=== PATIENT | female | born 1945 | race Caucasian/White ===

== ENCOUNTER 2017-08-29 18:29 | Inpatient (IN) | payer MEDICARE ==
[~2017-08-29] VITALS: Ht 160 cm; Wt 63.1 kg
[~2017-08-29 18:29] MED LIST: L-THYROXINE; PROTONIX40 M2 PO; Z.0.LISINOPRIL10 MG PO; Z.0.METOPROLOL SUCC2 PO; Z.0.SIMVASTATIN40 MG PO
--- NOTE | 2017-08-29 20:13 | Diagnostic Imaging Report ---
EXAMINATION: CHEST SINGLE (PORTABLE) INDICATION: Lower extremity swelling COMPARISON: None FINDINGS: TUBES and LINES: None. LUNGS: Lungs are well inflated. Right hilar prominence and right middle lung opacity suspicious for mass measuring 3.5 cm in diameter . There is associated right lower lobe atelectasis. PLEURA: Trace of right pleural effusion is seen HEART AND MEDIASTINUM: Cardiac size is mildly enlarged. There are atherosclerotic calcifications within the aorta. BONES AND SOFT TISSUES: No acute osseous lesion. Soft tissues are unremarkable. UPPER ABDOMEN: No free air under the diaphragm. IMPRESSION: Findings in the right hemithorax are suspicious for right hilar mass, atelectasis and obstructive pneumonitis. CT of the chest with IV contrast is recommended Signed by: Dr. Eldon Walsh M.D. on 08/29/2017 8:10 PM
[2017-08-29] MEDS ORDERED: SODIUM CHLORIDE 0.9% 1000ML 1,000 ML IV STA (21:28)
[2017-08-29] MEDS ORDERED: VANCOMYCIN 1GM/NS 250 ML 250 ML IV STA (22:07)
[2017-08-29] MEDS ORDERED: PIPER-TAZ 3.375 GM 50 ML IV STA (22:07)
[2017-08-29 23:05] LABS: BASOPHILS % 0.4 % (0.0-1.0); EOSINOPHILS # (AUTO) 0.2 (0.0-0.4); HEMATOCRIT 41.1 % (34.2-44.1); HEMOGLOBIN 12.9 g/dL (12.0-16.0); LYMPHOCYTES # (AUTO) 1.8 (1.0-3.2); LYMPHOCYTES % 24.5 % (18.0-39.1); MEAN CORPUSCULAR HEMOGLOBIN 27.5 pg (28-32); MEAN CORPUSCULAR HGB CONC 31.4 g/dL (31-35); MEAN CORPUSCULAR VOLUME 87.6 fL (81-99); MONOCYTES # (AUTO) 0.8 (0.2-0.8); MONOCYTES % 10.1 % (4.4-11.3); NEUTROPHILS # (AUTO) 4.6 (2.1-6.9); NEUTROPHILS % 61.7 % (38.7-80.0); PLATELET COUNT 238 x10e3/uL (140-360); RED BLOOD COUNT 4.69 x10e6/uL (3.6-5.1); RED CELL DISTRIBUTION WIDTH 13.4 % (11.7-14.4)
[2017-08-29 23:13] LABS: INR 0.95; PROTHROMBIN TIME 13.1 seconds (11.9-14.5)
[2017-08-29 23:14] LABS: PARTIAL THROMBOPLASTIN TIME 27.6 seconds (23.8-35.5)
[2017-08-29 23:23] LABS: ALANINE AMINOTRANSFERASE 8 IU/L (0-55); ALBUMIN 3.4 g/dL (3.5-5.0); ALBUMIN/GLOBULIN RATIO 0.7 (0.8-2.0); ALKALINE PHOSPHATASE 72 IU/L (40-150); ANION GAP 12.5 mmol/L (8-16); BLOOD UREA NITROGEN 6 mg/dL (7-26); BUN/CREATININE RATIO 9 (6-25); CALCIUM 9.1 mg/dL (8.4-10.2); CARBON DIOXIDE 30 mmol/L (22-29); CHLORIDE 100 mmol/L (98-107); CREATINE KINASE 54 IU/L (29-168); EST GLOMERULAR FILTRATION RATE > 60 ML/MIN (60-); GLUCOSE 89 mg/dL (74-118); POTASSIUM 3.5 mmol/L (3.5-5.1); SODIUM 139 mmol/L (136-145)
[2017-08-29 23:29] LABS: TROPONIN I 0.006 ng/mL (0-0.300)
--- NOTE | 2017-08-30 01:00 | Diagnostic Imaging Report ---
EXAM: CT Chest WITH contrast 08/30/2017 12:00 AM INDICATION: Pneumonia versus pulmonary embolism COMPARISON: Chest x-ray on 08/29/2017 TECHNIQUE: Chest was scanned utilizing a multidetector helical scanner from the lung apex through the level of the adrenal glands without administration of IV contrast. Coronal and sagittal reformations were obtained. Routine protocol was performed. IV CONTRAST: 100 mL of Isovue-370 RADIATION DOSE: Total DLP: 500.64 mGy*cm Estimated effective dose: (DLP x 0.014 x size factor) mSv COMPLICATIONS: None FINDINGS: LINES/ TUBES: None. LUNGS AND AIRWAYS: Right upper lobe nodule measuring 2.7 cm in diameter on series 3, image 32. There is a large 3.6 cm mass in the right middle lobe with associated atelectasis. The right middle lobe bronchus is encased by infrahilar adenopathy and narrowing the airway. PLEURA: The pleural spaces are clear. HEART AND MEDIASTINUM: The thyroid gland is normal. Massive mediastinal adenopathy predominantly involving the right lower paratracheal, subcarinal, and right hilar stations. The heart is normal in size.. There is no pericardial effusion. UPPER ABDOMEN: Large slight lateral hernia present. Moderate atherosclerotic disease of the thoracoabdominal aorta. BONES: There are degenerative changes in the thoracic spine. Large Schmorl nodule at the superior endplate of T11 SOFT TISSUES: Unremarkable. IMPRESSION: Findings are compatible with primary lung carcinoma with right upper lobe nodule and right middle lobe mass associated with prominent mediastinal adenopathy. Tissue sampling is recommended. Signed by: Dr. Eldon Walsh M.D. on 08/30/2017 12:56 AM
[2017-08-30] MEDS: SODIUM CHLORIDE 0.9% 1000ML 1,000 ML IV SCH ×2 (02:11→15:07)
[2017-08-30] MEDS: MORPHINE SULFATE 2 MG/ML SYR IV PRN ×2 (02:35→22:22)
[2017-08-30] MEDS: ONDANSETRON HCL INJ 2 MG/ML VIAL IV PRN ×2 (02:35→22:22)
[2017-08-30] MEDS: PIPER-TAZ 3.375 GM 50 ML IV SCH ×4 (03:00→21:02)
[2017-08-30 04:00] VITALS: BP 148/67
[2017-08-30] MEDS ORDERED: SODIUM CHLORIDE 0.9% 50ML 50 ML ONE (06:13)
[2017-08-30] MEDS ORDERED: IOPAMIDOL 370 MG/ML 200 ML INFUS..BTL INJ ONE (06:13)
[2017-08-30 08:00] VITALS: BP 130/63
[2017-08-30 10:00] LABS: CREATINE KINASE MB 2.6 ng/mL (0.00-5.00)
[2017-08-30 10:19] LABS: TROPONIN I 0.012 ng/mL (0-0.300)
--- NOTE | 2017-08-30 12:13 | History and Physical ---
PRIMARY CARE PHYSICIAN: Dr. Yessenia Lagunas. CHIEF COMPLAINT: Bilateral lower extremity pain, cellulitis, and lung mass. HISTORY OF PRESENT ILLNESS: A 72-year-old female basically came to the hospital because of increase in lower extremity pain and swelling. The patient had redness. The patient's pain was moderate. She also has very poor toenail care to both feet. The patient also has cellulitis, worse on the right lower extremity compared to the left. The patient is otherwise stable. PAST MEDICAL HISTORY: COPD. Peripheral vascular disease. Hypertension. Hyperlipidemia. Reflux. PAST SURGICAL HISTORY: Tubal ligation. SOCIAL HISTORY: Patient is an ex-smoker. She lives at home by herself with her son visiting from time to time. No recreational drug use, no alcohol. ALLERGIES: NO KNOWN ALLERGY. HOME MEDICATIONS: Lisinopril, metoprolol, Protonix and simvastatin. REVIEW OF SYSTEMS: Bilateral lower extremity pain. The toenails unkept. Increasing shortness of breath with exertion. No chest pain. No neurological deficit. PHYSICAL EXAMINATION: VITAL SIGNS: Temperature is 98. Blood pressure 148/67. Pulse rate 78. Respiration 22. GENERAL: The patient is not in acute distress. She is awake. HEENT: Normocephalic, atraumatic. Sclerae anicteric. NECK: Supple grossly. PULMONARY: Diminished breath sounds bilaterally. CARDIOVASCULAR: S1 and S2. Regular rate and rhythm. ABDOMEN: Soft. Positive bowel sounds. Nontender, nondistended. EXTREMITIES: Bilateral lower extremity cellulitis. Toes unkept. NEUROLOGIC: No gross focal deficit. LABORATORY: WBC is 7.4. Hemoglobin 13. Hematocrit 41. Platelets 238. Sodium is 138, potassium 3.5, chloride 100, bicarb 30, BUN 6, creatinine 0.7, glucose 89. IMAGING TESTS: A CT of the chest showed that the patient has primary lung carcinoma most likely compatible with the finding of a right upper lobe nodule and right middle lobe mass associated with prominent mediastinal adenopathy. IMPRESSION: 1. Bilateral lower extremity cellulitis. 2. Lung mass of the right upper lobe and right middle lobe. 3. Baseline ex-smoker. 4. Bilateral lower extremity pain with unkept toenails and wounds of the lower extremity with infection. PLAN: IV antibiotics, Zosyn and vancomycin. Consultation with Dr. Bill Dover. Consultation with Dr. Mk Rosenberg for the lung mass. Nebulizer treatment. Home medications resumed. Job#: [id number] EV
[2017-08-30] MEDS: VANCOMYCIN 750MG/NS 150ML IVPB 150 ML IV SCH (13:00)
[2017-08-30 16:00] VITALS: BP 154/71
--- NOTE | 2017-08-30 18:23 | Consultation ---
DATE OF CONSULTATION: August 30, 2017 PULMONARY/CRITICAL CARE CONSULTATION CHIEF COMPLAINT: Right lung mass. HISTORY OF PRESENT ILLNESS: The patient is a 72-year-old woman. She has a history of smoking. She quit smoking about 14 years ago. She was given a rescue inhaler several years ago, but she never uses it. She does not know of any other prior pulmonary history. She denies using oxygen at home. She denies history of COPD. Over the past several weeks, she has noticed a dry cough. She does not have hemoptysis. She denies chest pain. She denies weight loss or fevers. The patient came to the hospital with worsening redness and swelling in her feet. She was admitted for cellulitis. Chest x-ray showed a right midlung field mass. A CT scan of the chest showed a mass in the area of right middle lobe bronchus with some distal atelectasis. There was also some right lower paratracheal adenopathy, as well as some subcarinal lymphadenopathy. PAST SURGICAL HISTORY: Status post tubal ligation. PAST MEDICAL HISTORY 1. History of peripheral vascular disease. 2. Patient denies any prior cardiac history. 3. Hypertension. SOCIAL HISTORY: The patient quit smoking 14 years ago. She is not a drinker. ALLERGIES: THERE ARE NO KNOWN DRUG ALLERGIES. FAMILY HISTORY: Noncontributory. REVIEW OF SYSTEMS: She denies fever. She has no headache. She has no neck pain. She has no chest pain. She denies dyspnea. She does have a mild cough. There is no hemoptysis. She does not have any abdominal pain. There is no nausea or vomiting. She does complain of leg swelling and redness. She has difficulty cutting the toenails and they had grown quite a bit. She denies focal neurological problems. PHYSICAL EXAMINATION VITALS: The patient is afebrile. Blood pressure is 130/60, pulse is 78. The O2 saturation is 73%. HEENT: Shows no facial swelling or erythema. The nasal mucosa is normal. The oropharynx is normal. LYMPHATIC: Shows no submandibular, cervical or supraclavicular adenopathy. NECK: Shows no JVD or thyromegaly. There is no nuchal rigidity. CARDIAC: Reveals a regular rate and rhythm with normal S1 and S2. There are no murmurs or rubs. LUNGS: Auscultation of the lungs reveals clear breath sounds bilaterally. There is no wheezing. ABDOMEN: Soft and nontender. There is no rebound or guarding. EXTREMITIES: Shows edema in both feet and lower extremities. There is abnormal toenails. There is poor pulses. LABORATORY DATA: The platelet count is 238,000. The white blood cell count is 7.4. The BUN to creatinine ratio is normal. The other electrolytes are within normal limits. Her PT and PTT are normal. Chest CT there is a right middle lobe mass with some narrowing of the right middle lobe bronchus. There is associated subcarinal adenopathy, as well as a right pretracheal hilar and hilar adenopathy. IMPRESSION 1. Bronchogenic carcinoma, stage T2N2. 2. Lower extremity cellulitis. 3. Hypertension. PLAN 1. We will arrange for bronchoscopy along with the needle biopsy of the subcarinal area tomorrow afternoon. 2. Will continue oxygen as needed. Job#: [id number] ARASH
[2017-08-30 18:45] LABS: CREATINE KINASE MB 2.6 ng/mL (0.00-5.00); TROPONIN I 0.008 ng/mL (0-0.300)
[2017-08-30 20:00] VITALS: BP 150/65
[2017-08-31] VITALS (8 sets, daily range): BP systolic 120–163; BP diastolic 59–75
[2017-08-31] MEDS: VANCOMYCIN 750MG/NS 150ML IVPB 150 ML IV SCH ×2 (00:56→12:44)
[2017-08-31] MEDS: PIPER-TAZ 3.375 GM 50 ML IV SCH ×4 (02:31→20:21)
[2017-08-31] MEDS: SODIUM CHLORIDE 0.9% 1000ML 1,000 ML IV SCH ×2 (04:27→16:53)
[2017-08-31 06:22] LABS: BASOPHILS % 0.4 % (0.0-1.0); EOSINOPHILS # (AUTO) 0.4 (0.0-0.4); HEMATOCRIT 40.1 % (34.2-44.1); HEMOGLOBIN 12.5 g/dL (12.0-16.0); LYMPHOCYTES # (AUTO) 2.2 (1.0-3.2); LYMPHOCYTES % 23.4 % (18.0-39.1); MEAN CORPUSCULAR HEMOGLOBIN 27.7 pg (28-32); MEAN CORPUSCULAR HGB CONC 31.2 g/dL (31-35); MEAN CORPUSCULAR VOLUME 88.9 fL (81-99); MONOCYTES # (AUTO) 0.9 (0.2-0.8); MONOCYTES % 9.2 % (4.4-11.3); NEUTROPHILS # (AUTO) 5.8 (2.1-6.9); NEUTROPHILS % 62.7 % (38.7-80.0); PLATELET COUNT 230 x10e3/uL (140-360); RED BLOOD COUNT 4.51 x10e6/uL (3.6-5.1); RED CELL DISTRIBUTION WIDTH 13.6 % (11.7-14.4)
[2017-08-31 06:48] LABS: ALANINE AMINOTRANSFERASE 8 IU/L (0-55); ALBUMIN/GLOBULIN RATIO 0.7 (0.8-2.0); ALKALINE PHOSPHATASE 59 IU/L (40-150); ANION GAP 10.9 mmol/L (8-16); BLOOD UREA NITROGEN 6 mg/dL (7-26); BUN/CREATININE RATIO 8 (6-25); CALCIUM 8.8 mg/dL (8.4-10.2); CARBON DIOXIDE 30 mmol/L (22-29); CHLORIDE 104 mmol/L (98-107); CREATININE, SERUM 0.77 mg/dL (0.57-1.11); EST GLOMERULAR FILTRATION RATE > 60 ML/MIN (60-); GLUCOSE 96 mg/dL (74-118); POTASSIUM 3.9 mmol/L (3.5-5.1); SODIUM 141 mmol/L (136-145)
[2017-08-31 11:16] LABS: BILIRUBIN,URINE NEGATIVE (NEGATIVE); KETONES,URINE NEGATIVE (NEGATIVE); LEUKOCYTE ESTERASE ,URINE NEGATIVE (NEGATIVE); NITRITE,URINE NEGATIVE (NEGATIVE); PROTEIN,URINE DIPSTICK NEGATIVE (NEGATIVE); URINE UROBILINOGEN 0.2 mg/dL (0.2 - 1)
[2017-08-31 11:28] LABS: CLARITY,URINE CLEAR (CLEAR); COLOR,URINE YELLOW (YELLOW)
[2017-08-31 11:40] LABS: EPITHELIAL CELLS,URINE RARE /LPF
--- NOTE | 2017-08-31 14:18 | Consultation ---
DATE OF CONSULTATION: August 31, 2017 REASON FOR CONSULTATION: Bilateral foot pain, severe, onychia, bilateral feet. Also, history of PAD with also on admission for cellulitis of bilateral lower extremities. HISTORY OF PRESENT ILLNESS: Mrs. Gomez is a very pleasant 72-year-old female with significant pain associated to bilateral feet. Admitted and currently undergoing workup for bronchoscopy with perhaps a lung biopsy due to her lung mass as well. PAST MEDICAL HISTORY: Known peripheral arterial disease, hypertension, COPD, hyperlipidemia, esophageal reflux. PAST SURGICAL HISTORY: Tubal ligation. SOCIAL HISTORY: Ex-smoker. Lives at home independent. No recent alcohol. No tobacco use per her accounts. ALLERGIES: NO KNOWN DRUG ALLERGIES. MEDICINES: Please see MAR for current medication list. REVIEW OF SYSTEMS: Bilateral lower extremity foot and ankle pain. Recent shortness of breath without chest pain. Denies any nausea, vomiting, fever, chills. PHYSICAL EXAMINATION VITAL SIGNS: Temperature 98.2, pulse 66, respiratory rate 20, blood pressure 161/66. GENERAL: A and O times 3. NAD. HEENT: Normocephalic and atraumatic. Anicteric. Moist mucosal membranes. NECK: Supple. No JVD. RESPIRATORY: Symmetrical expansion. No distress. PSYCHIATRIC: Normal affect. ABDOMEN: Nontender and nondistended. EXTREMITIES: Lower extremity erythema and edema with decrease in capillary fill time. Pulses faint although palpable dorsalis pedis and posterior tibial arteries. No discoloration, hypertrophy, dystrophy, and insignificant elongation with also some incurvation with tenderness. like nail appearance as well. ASSESSMENT 1. Severe onychia, bilateral feet with concomitant pain. 2. Cellulitis of bilateral lower extremities particularly feet and particularly forefoot. 3. Peripheral arterial disease. PLAN: Recommend Bactroban application daily. Will benefit really from nail debridement, perhaps nail evulsion or perhaps partial nail evulsion pending on clinical course. I would like to thank Dr. Yin for allowing me to participate in the care of this patient. Job#: [id number] PR
[2017-08-31] MEDS ORDERED: LIDOCAINE HCL 2% 30 ML TUBE ONE (14:40)
[2017-08-31] MEDS ORDERED: OXYMETAZOLINE HCL 0.05% NAS 1 SPRAY BTL ONE (14:40)
[2017-08-31] MEDS ORDERED: LIDOCAINE HCL 4% 50 ML BTL ONE (14:40)
--- NOTE | 2017-08-31 16:08 | Operative Report ---
DATE OF PROCEDURE: August 31, 2017 CHIEF COMPLAINT: Bronchogenic carcinoma with right middle lobe atelectasis. CONSENT: Consent was obtained from the patient. ANESTHESIA: The Anesthesia Service provided MAC sedation. OPERATIVE REPORT: The patient was intubated with an endotracheal tube by anesthesia. The scope was advanced through the tube. The shavonne appeared normal. The left tracheobronchial tree was examined. The left upper lobe and lingula were normal with no endobronchial lesions. The left lower lobe was normal with no endobronchial lesions. The scope was then repositioned into the right tracheobronchial tree. The right upper lobe appeared normal. There were no endobronchial lesions. The right middle lobe appeared normal with no endobronchial lesions. There was extrinsic compression of the right middle lobe orifice. The scope could not be advanced past the main right middle lobe orifice. Endobronchial biopsies were taken x5. The scope was then repositioned above the shavonne. A transtracheal needle aspirate of the subcarinal area was done x3. ESTIMATED BLOOD LOSS: 5 mL. COMPLICATIONS: None. Job#: [id number]
--- NOTE | 2017-08-31 16:14 | Diagnostic Imaging Report ---
PROCEDURE: A single AP view of the chest. COMPARISON: 08/29/17 INDICATIONS: POST BRONCH FINDINGS: Lines/tubes: None. Lungs: The lungs are well inflated. Increased right lung opacification. Pleura: There is no significant pleural effusion or pneumothorax. Heart and mediastinum: The heart and the mediastinum are unremarkable. Bones: No acute bony abnormality. IMPRESSION: Increased right lung opacification when compared to prior x-ray, representing worsening atelectasis and/or pneumonia. Dictated by: Raman Ochoa M.D. on 08/31/2017 at 16:23 Electronically approved by: Raman Ochoa M.D. on 08/31/2017 at 16:23
[2017-08-31] MEDS ORDERED: PROPOFOL IV EMULSION 10 MG/ML 50 ML VIAL ONE (16:58)
[2017-08-31] MEDS ORDERED: FENTANYL CITRATE/PF 100MCG/2 ML INJ ONE (17:07)
[2017-08-31] MEDS ORDERED: MIDAZOLAM HCL 2 MG/2 ML VIAL ONE (17:07)
[2017-09-01] VITALS (7 sets, daily range): BP systolic 142–158; BP diastolic 65–71
[2017-09-01] MEDS: VANCOMYCIN 750MG/NS 150ML IVPB 150 ML IV SCH (01:49)
[2017-09-01] MEDS: PIPER-TAZ 3.375 GM 50 ML IV SCH ×4 (03:32→20:43)
[2017-09-01] MEDS: SODIUM CHLORIDE 0.9% 1000ML 1,000 ML IV SCH ×2 (07:07→20:27)
[2017-09-01] MEDS ORDERED: VANCOMYCIN 1GM/NS 250 ML 250 ML IV SCH (08:30)
[2017-09-01] MEDS: VANCOMYCIN 1GM/NS 250 ML 250 ML IV SCH (13:00)
[2017-09-01] MEDS: MORPHINE SULFATE 4 MG/ML SYR IV PRN (21:51)
[2017-09-02 00:48] VITALS: BP 181/79
[2017-09-02] MEDS: PIPER-TAZ 3.375 GM 50 ML IV SCH ×4 (01:26→20:35)
[2017-09-02] MEDS: MORPHINE SULFATE 4 MG/ML SYR IV PRN (04:25)
[2017-09-02 06:12] LABS: BASOPHILS % 0.5 % (0.0-1.0); EOSINOPHILS # (AUTO) 0.4 (0.0-0.4); EOSINOPHILS % 4.9 % (0.0-6.0); HEMOGLOBIN 11.5 g/dL (12.0-16.0); LYMPHOCYTES # (AUTO) 1.9 (1.0-3.2); LYMPHOCYTES % 25.4 % (18.0-39.1); MEAN CORPUSCULAR HEMOGLOBIN 27.8 pg (28-32); MEAN CORPUSCULAR HGB CONC 31.9 g/dL (31-35); MEAN CORPUSCULAR VOLUME 87.2 fL (81-99); MONOCYTES # (AUTO) 0.8 (0.2-0.8); MONOCYTES % 10.6 % (4.4-11.3); NEUTROPHILS # (AUTO) 4.4 (2.1-6.9); NEUTROPHILS % 58.3 % (38.7-80.0); PLATELET COUNT 209 x10e3/uL (140-360); RED BLOOD COUNT 4.13 x10e6/uL (3.6-5.1); RED CELL DISTRIBUTION WIDTH 13.2 % (11.7-14.4)
[2017-09-02 06:17] VITALS: BP 141/63
[2017-09-02 06:30] LABS: ALANINE AMINOTRANSFERASE 8 IU/L (0-55); ALBUMIN 2.5 g/dL (3.5-5.0); ALBUMIN/GLOBULIN RATIO 0.6 (0.8-2.0); ALKALINE PHOSPHATASE 46 IU/L (40-150); ANION GAP 11.4 mmol/L (8-16); BLOOD UREA NITROGEN 6 mg/dL (7-26); BUN/CREATININE RATIO 9 (6-25); CALCIUM 8.2 mg/dL (8.4-10.2); CARBON DIOXIDE 28 mmol/L (22-29); CHLORIDE 105 mmol/L (98-107); CREATININE, SERUM 0.65 mg/dL (0.57-1.11); EST GLOMERULAR FILTRATION RATE > 60 ML/MIN (60-); GLUCOSE 111 mg/dL (74-118); POTASSIUM 3.4 mmol/L (3.5-5.1); SODIUM 141 mmol/L (136-145)
[2017-09-02 08:00] VITALS: BP 159/70
[2017-09-02] MEDS: SODIUM CHLORIDE 0.9% 1000ML 1,000 ML IV SCH (09:47)
[2017-09-02 12:00] VITALS: BP 142/89
[2017-09-02] MEDS: VANCOMYCIN 1GM/NS 250 ML 250 ML IV SCH (12:17)
[2017-09-02 16:00] VITALS: BP 159/87
[2017-09-02] MEDS: UREA 40% CRM TP SCH (18:27)
[2017-09-02] MEDS ORDERED: TRAMADOL HCL 50 MG TAB PO PRN (18:30)
[2017-09-02 20:00] VITALS: BP 180/88
[2017-09-02] MEDS: TROLAMINE SALICYLATE 35.4 GM CR TP PRN (21:02)
[2017-09-03] VITALS: BP 170/73
[2017-09-03] MEDS: PIPER-TAZ 3.375 GM 50 ML IV SCH ×4 (01:52→20:09)
[2017-09-03 06:19] LABS: BASOPHILS % 0.4 % (0.0-1.0); EOSINOPHILS # (AUTO) 0.3 (0.0-0.4); HEMATOCRIT 35.5 % (34.2-44.1); HEMOGLOBIN 11.6 g/dL (12.0-16.0); LYMPHOCYTES # (AUTO) 1.9 (1.0-3.2); LYMPHOCYTES % 22.6 % (18.0-39.1); MEAN CORPUSCULAR HGB CONC 32.7 g/dL (31-35); MEAN CORPUSCULAR VOLUME 85.5 fL (81-99); MONOCYTES # (AUTO) 0.8 (0.2-0.8); MONOCYTES % 9.6 % (4.4-11.3); NEUTROPHILS # (AUTO) 5.4 (2.1-6.9); NEUTROPHILS % 63.2 % (38.7-80.0); PLATELET COUNT 227 x10e3/uL (140-360); RED BLOOD COUNT 4.15 x10e6/uL (3.6-5.1); RED CELL DISTRIBUTION WIDTH 13.2 % (11.7-14.4)
[2017-09-03 06:41] LABS: ANION GAP 8.9 mmol/L (8-16); BLOOD UREA NITROGEN 5 mg/dL (7-26); BUN/CREATININE RATIO 8 (6-25); CALCIUM 8.5 mg/dL (8.4-10.2); CARBON DIOXIDE 30 mmol/L (22-29); CHLORIDE 105 mmol/L (98-107); CREATININE, SERUM 0.63 mg/dL (0.57-1.11); EST GLOMERULAR FILTRATION RATE > 60 ML/MIN (60-); GLUCOSE 86 mg/dL (74-118); POTASSIUM 3.9 mmol/L (3.5-5.1); SODIUM 140 mmol/L (136-145)
[2017-09-03] MEDS ORDERED: SIMVASTATIN 40 MG TAB PO SCH (09:00)
[2017-09-03 09:10] VITALS: BP 165/92
[2017-09-03] MEDS: METOPROLOL SUCCINATE 25 MG TAB XL PO SCH (09:59)
[2017-09-03] MEDS: LISINOPRIL 10 MG TAB PO SCH (09:59)
[2017-09-03] MEDS: PANTOPRAZOLE SODIUM 40 MG SUSPDR.PKT PO SCH (09:59)
[2017-09-03] MEDS: UREA 40% CRM TP SCH (10:00)
[2017-09-03] MEDS ORDERED: HYDROCODONE/APAP 10MG-325MG TAB PO PRN (13:15)
[2017-09-03 16:44] VITALS: BP 140/63
[2017-09-03] MEDS: ENOXAPARIN SOD INJ 40 MG/0.4 ML SYR SC SCH (17:55)
[2017-09-03 20:00] VITALS: BP 160/75
[2017-09-03] MEDS: SIMVASTATIN 40 MG TAB PO SCH (20:09)
[2017-09-03] MEDS: TROLAMINE SALICYLATE 35.4 GM CR TP PRN (21:22)
[2017-09-04] VITALS (8 sets, daily range): BP systolic 114–172; BP diastolic 60–93
[2017-09-04] MEDS: PIPER-TAZ 3.375 GM 50 ML IV SCH ×4 (01:35→20:00)
[2017-09-04] MEDS: PANTOPRAZOLE SODIUM 40 MG SUSPDR.PKT PO SCH (09:00)
[2017-09-04] MEDS ORDERED: PANTOPRAZOLE SOD 40 MG TABEC ONE (09:11)
[2017-09-04] MEDS: PANTOPRAZOLE SOD 40 MG TABEC PO SCH (09:19)
[2017-09-04] MEDS: LISINOPRIL 10 MG TAB PO SCH (09:19)
[2017-09-04] MEDS: METOPROLOL SUCCINATE 25 MG TAB XL PO SCH (09:20)
[2017-09-04] MEDS: UREA 40% CRM TP SCH (09:20)
[2017-09-04] MEDS: ENOXAPARIN SOD INJ 40 MG/0.4 ML SYR SC SCH (16:47)
[2017-09-04] MEDS: SIMVASTATIN 40 MG TAB PO SCH (21:00)
[2017-09-04] MEDS: HYDROCODONE/APAP 10MG-325MG TAB PO PRN (21:30)
[2017-09-05] VITALS (7 sets, daily range): BP systolic 127–167; BP diastolic 64–75
[2017-09-05] MEDS: HYDROCODONE/APAP 10MG-325MG TAB PO PRN ×3 (02:20→21:33)
[2017-09-05] MEDS: PIPER-TAZ 3.375 GM 50 ML IV SCH ×2 (02:20→09:25)
[2017-09-05] MEDS: TROLAMINE SALICYLATE 35.4 GM CR TP PRN ×2 (02:30→23:49)
[2017-09-05] MEDS: LEVOTHYROXINE SODIUM 75 MCG TAB PO SCH (05:48)
[2017-09-05 06:46] LABS: BASOPHILS % 0.5 % (0.0-1.0); EOSINOPHILS # (AUTO) 0.4 (0.0-0.4); EOSINOPHILS % 4.7 % (0.0-6.0); HEMATOCRIT 35.7 % (34.2-44.1); HEMOGLOBIN 11.5 g/dL (12.0-16.0); LYMPHOCYTES # (AUTO) 2.3 (1.0-3.2); LYMPHOCYTES % 27.1 % (18.0-39.1); MEAN CORPUSCULAR HEMOGLOBIN 27.8 pg (28-32); MEAN CORPUSCULAR HGB CONC 32.2 g/dL (31-35); MEAN CORPUSCULAR VOLUME 86.2 fL (81-99); MONOCYTES # (AUTO) 0.8 (0.2-0.8); MONOCYTES % 9.7 % (4.4-11.3); NEUTROPHILS # (AUTO) 4.8 (2.1-6.9); NEUTROPHILS % 57.8 % (38.7-80.0); PLATELET COUNT 232 x10e3/uL (140-360); RED BLOOD COUNT 4.14 x10e6/uL (3.6-5.1); RED CELL DISTRIBUTION WIDTH 13.4 % (11.7-14.4)
[2017-09-05 07:15] LABS: ANION GAP 9.3 mmol/L (8-16); BLOOD UREA NITROGEN 5 mg/dL (7-26); BUN/CREATININE RATIO 7 (6-25); CALCIUM 8.5 mg/dL (8.4-10.2); CARBON DIOXIDE 29 mmol/L (22-29); CHLORIDE 106 mmol/L (98-107); CREATININE, SERUM 0.67 mg/dL (0.57-1.11); EST GLOMERULAR FILTRATION RATE > 60 ML/MIN (60-); GLUCOSE 90 mg/dL (74-118); POTASSIUM 3.3 mmol/L (3.5-5.1); SODIUM 141 mmol/L (136-145)
[2017-09-05] MEDS: PANTOPRAZOLE SOD 40 MG TABEC PO SCH (09:25)
[2017-09-05] MEDS: METOPROLOL SUCCINATE 25 MG TAB XL PO SCH (09:25)
[2017-09-05] MEDS: LISINOPRIL 10 MG TAB PO SCH (09:25)
[2017-09-05] MEDS: UREA 40% CRM TP SCH (09:25)
[2017-09-05] MEDS ORDERED: POTASSIUM CHLORIDE 20 MEQ TAB CR PO ONE (14:00)
[2017-09-05] MEDS ORDERED: DOXYCYCLINE HYCLATE TABLET 100 MG TAB PO SCH (14:00)
[2017-09-05] MEDS: ENOXAPARIN SOD INJ 40 MG/0.4 ML SYR SC SCH (17:20)
[2017-09-05] MEDS: SIMVASTATIN 40 MG TAB PO SCH (21:00)
[2017-09-06] VITALS (8 sets, daily range): BP systolic 121–167; BP diastolic 59–78
[2017-09-06] MEDS: HYDROCODONE/APAP 10MG-325MG TAB PO PRN ×2 (04:21→20:31)
[2017-09-06] MEDS: LEVOTHYROXINE SODIUM 75 MCG TAB PO SCH (05:08)
[2017-09-06] MEDS: METOPROLOL SUCCINATE 25 MG TAB XL PO SCH (09:33)
[2017-09-06] MEDS: DOXYCYCLINE HYCLATE TABLET 100 MG TAB PO SCH ×2 (09:33→17:09)
[2017-09-06] MEDS: PANTOPRAZOLE SOD 40 MG TABEC PO SCH (09:33)
[2017-09-06] MEDS: UREA 40% CRM TP SCH (09:33)
[2017-09-06] MEDS: LISINOPRIL 10 MG TAB PO SCH (09:33)
[2017-09-06] MEDS: ENOXAPARIN SOD INJ 40 MG/0.4 ML SYR SC SCH (17:09)
[2017-09-06] MEDS: SIMVASTATIN 40 MG TAB PO SCH (20:31)
[2017-09-07 00:39] VITALS: BP 122/61
[2017-09-07 04:49] VITALS: BP 162/68
[2017-09-07] MEDS: LEVOTHYROXINE SODIUM 75 MCG TAB PO SCH (06:17)
[2017-09-07 08:00] VITALS: BP 159/67
[2017-09-07] MEDS: LISINOPRIL 10 MG TAB PO SCH (08:22)
[2017-09-07] MEDS: PANTOPRAZOLE SOD 40 MG TABEC PO SCH (08:22)
[2017-09-07] MEDS: UREA 40% CRM TP SCH (08:23)
[2017-09-07] MEDS: DOXYCYCLINE HYCLATE TABLET 100 MG TAB PO SCH ×2 (08:23→17:14)
[2017-09-07] MEDS: METOPROLOL SUCCINATE 25 MG TAB XL PO SCH (08:23)
[2017-09-07 12:00] VITALS: BP 144/71
[2017-09-07 16:00] VITALS: BP 183/104
[2017-09-07] MEDS: ENOXAPARIN SOD INJ 40 MG/0.4 ML SYR SC SCH (17:14)
[2017-09-07 20:00] VITALS: BP 169/72
[2017-09-07] MEDS: SIMVASTATIN 40 MG TAB PO SCH (20:50)
[2017-09-07] MEDS: HYDROCODONE/APAP 10MG-325MG TAB PO PRN (20:56)
[2017-09-08] VITALS (7 sets, daily range): BP systolic 140–175; BP diastolic 63–77
[2017-09-08] MEDS: LEVOTHYROXINE SODIUM 75 MCG TAB PO SCH (05:35)
[2017-09-08] MEDS: HYDROCODONE/APAP 10MG-325MG TAB PO PRN ×2 (05:36→21:32)
[2017-09-08] MEDS: PANTOPRAZOLE SOD 40 MG TABEC PO SCH (08:21)
[2017-09-08] MEDS: LISINOPRIL 10 MG TAB PO SCH (08:22)
[2017-09-08] MEDS: UREA 40% CRM TP SCH (08:22)
[2017-09-08] MEDS: DOXYCYCLINE HYCLATE TABLET 100 MG TAB PO SCH (08:22)
[2017-09-08] MEDS: METOPROLOL SUCCINATE 25 MG TAB XL PO SCH (08:22)
[2017-09-08] MEDS: SIMVASTATIN 40 MG TAB PO SCH (21:31)
[2017-09-09] VITALS: BP 124/59
[2017-09-09 04:00] VITALS: BP 134/63
[2017-09-09] MEDS: ENOXAPARIN SOD INJ 40 MG/0.4 ML SYR SC SCH (05:49)
[2017-09-09] MEDS: LEVOTHYROXINE SODIUM 75 MCG TAB PO SCH (05:50)
[2017-09-09 08:04] VITALS: BP 136/69
[2017-09-09] MEDS: PANTOPRAZOLE SOD 40 MG TABEC PO SCH (08:39)
[2017-09-09] MEDS: DOXYCYCLINE HYCLATE TABLET 100 MG TAB PO SCH (08:39)
[2017-09-09] MEDS: METOPROLOL SUCCINATE 25 MG TAB XL PO SCH (08:40)
[2017-09-09] MEDS: LISINOPRIL 10 MG TAB PO SCH (08:40)
[2017-09-09] MEDS: UREA 40% CRM TP SCH (08:40)
--- NOTE | 2017-09-09 12:53 | Discharge Summary ---
PCP: Yessneia Lagunas MD CONSULTANTS: Dr. Bill Motta and Dr. Mk Rosenberg. FINAL DIAGNOSES 1. Bilateral lower extremity cellulitis, resolved. 2. Right upper lobe mass and right middle lobe mass associated with mediastinal adenopathy associated with postobstructive pneumonia. 3. 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 SUMMARY: Patient is a 72-year-old female who came in with increasing shortness of breath, cough, fever and cellulitis of both lower extremities with very unkept foot care. The patient's toenail was at least 3 inches long, but basically was cut by Dr. Bill Motta. Cellulitis secondary to unkept poor hygiene of the lower extremities. Cellulitis resolved with antibiotics. On the workup, the patient also had cough and fever. Chest x-ray was abnormal. Subsequently, a CT scan showed multiple lung masses on the right side. The patient subsequently underwent a lung biopsy done on September 01. The results showed it to be malignancy with poorly differentiated nonsmall cell lung cancer. Immunostain is still pending. The patient was seen by Dr. Mk Rosenberg. The patient was discharged home with home health. She needs to follow up with Dr. Mk Rosenberg next week for final result of the lung pathology. The patient may or may not be a candidate for radiation or chemotherapy pending on further evaluation by her oncologist as an outpatient. The patient is otherwise stable for discharge. Arrangement has been made for home health. Prescription was given, and the patient will continue with home care and follow up with Dr. Lagunas next week as well. Job#: [id number]
== END 2017-09-09 10:03 | disposition home or self-care (01) | DRG 987 ==
LOC: ER 18:29 → MED/SURG2 08-30 02:19
PROVIDERS: ADMIT Internal Medicine; ATTEND Internal Medicine
PROC: 07B74ZX Excision of Thorax Lymphatic, Percutaneous Endoscopic Approach, Diagnostic (ICD-10-PCS; 2017-08-31)
PROC: 0BB58ZX Excision of Right Middle Lobe Bronchus, Via Natural or Artificial Opening Endoscopic, Diagnostic (ICD-10-PCS; principal; 2017-08-31 14:47)
DX: C34.2 Malignant neoplasm of middle lobe, bronchus or lung (principal); J18.9 Pneumonia, unspecified organism; E44.0 Moderate protein-calorie malnutrition; L03.115 Cellulitis of right lower limb; J44.9 Chronic obstructive pulmonary disease, unspecified; L03.116 Cellulitis of left lower limb; Z87.891 Personal history of nicotine dependence; L03.032 Cellulitis of left toe; L03.031 Cellulitis of right toe; I10 Essential (primary) hypertension; K21.9 Gastro-esophageal reflux disease without esophagitis; E78.5 Hyperlipidemia, unspecified; R59.0 Localized enlarged lymph nodes
CPT/HCPCS: 36415; 71045; 71260; 80048; 80053; 80202; 81001; 82550; 82553; 83605; 83880; 84134; 84484; 85025; 85610; 85730; 87040; 87086; 88112; 88305; 88342; 93005; 93970; 97139; 99284; J1650; J2250; J2270; J2405; J2543; J3370; J7030; Q9967